=== PATIENT | male | born 1975 | race Caucasian/White ===

== ENCOUNTER 2020-07-06 17:56 | Emergency (ER) | payer SELFPAY ==
[2020-07-06] MEDS ORDERED: Ketorolac Tromethamine 30 MG/ML VIAL ONE (18:20)
== END 2020-07-06 18:58 | disposition home or self-care (01) ==
LOC: ERS 17:56
DX: S89.92XA Unspecified injury of left lower leg, initial encounter (principal); E11.9 Type 2 diabetes mellitus without complications; E78.5 Hyperlipidemia, unspecified; I10 Essential (primary) hypertension; F17.220 Nicotine dependence, chewing tobacco, uncomplicated; Z79.899 Other long term (current) drug therapy; X58.XXXA Exposure to other specified factors, initial encounter
CPT/HCPCS: 36416; 96372; J1885